=== PATIENT | female | born 1965 | race Caucasian/White ===

== ENCOUNTER 2016-06-29 12:36 | Day surgery (SDC) | payer OTHER ==
[~2016-06-29] VITALS: Ht 157.5 cm; Wt 89.3 kg
[2016-06-29] VITALS (7 sets, daily range): BP systolic 111–148; BP diastolic 56–88; PULSE 65–79; TEMP 98–98.3
[~2016-06-29 12:36] MED LIST: LEVSIN 0.10.125 MG/T PO; NORCO 325 MG-51 TAB PO; ZOFRAN 4MG T4 MG/TAB PO
[2016-06-29] MEDS ORDERED: PEPCID40 MG PO (13:07)
[2016-06-29] MEDS ORDERED: NORCO 325 MG-51 TAB PO (18:47)
[2016-06-29] MEDS ORDERED: ZOFRAN ODT4 MG PO (18:47)
== END 2016-06-29 22:06 | disposition home or self-care (01) ==
LOC: SDCO 12:36 → JCC 19:15 → SDCO 22:06
DX: K81.1 Chronic cholecystitis (principal)
CPT/HCPCS: OP; J0330; J0690; J1100; J1885; J2270; J2405; J2704; J3010; J7120; Q9967

== ENCOUNTER → 2017-01-07 | Outpatient (REF) ==
[~2017-01-07] MED LIST changes: +PEPCID40 MG PO; +ZOFRAN ODT4 MG PO
== END ==
LOC: WSOH 08:30
DX: Z23 Encounter for immunization (principal)

== ENCOUNTER → 2017-01-29 | Outpatient (REF) | LOC: WSOH 16:00 | DX: Z02.89 Encounter for other administrative examinations (principal) ==

== ENCOUNTER → 2017-09-24 | Outpatient (CLI) | payer OTHER ==
[2017-09-24 07:37] LABS: BASO # 0.1 (0.0-0.2); BASO % 1.2 % (0.0-2.0); EOS # 0.1 (0.0-0.7); GRAN # 2.3 (1.4-6.5); HEMATOCRIT 41.3 % (37.0-47.0); LYMPH # 1.5 (1.2-3.4); LYMPH % 34.2 % (20.0-51.0); MEAN CELL VOLUME 92 fl (80.0-100.0); MEAN CORPUSCULAR HEMOGLOBIN 31 pg (27.0-31.0); MEAN CORPUSCULAR HGB CONC 34 g/dl (33.0-37.0); MEAN PLATELET VOLUME 9.7 fl (7.4-10.4); MONO # 0.4 (0.1-0.6); MONO % 8.4 % (1.7-9.3); PLATELET COUNT 304 K/mm3 (130-400)
[2017-09-24 07:48] LABS: ALBUMIN 3.4 gm/dL (3.5-5.0); BILIRUBIN,TOTAL 0.5 mg/dL (0.0-1.0); CALCIUM 9.1 mg/dL (8.4-10.2); CHOLESTEROL RISK RATIO 2.7; CREATININE, serum 0.83 mg/dL (0.52-1.25); TOTAL PROTEIN 6.3 gm/dL (6.4-8.2)
[2017-09-24 08:18] LABS: THYROID STIMULATING HORMONE 2.79 uIU/mL (0.465-4.680)
== END ==
LOC: COL.LAB 07:14
PROVIDERS: Family Medicine
DX: Z13.220 Encounter for screening for lipoid disorders (principal); Z13.29 Encounter for screening for other suspected endocrine disorder; Z13.0 Encounter for screening for diseases of the blood and blood-forming organs and certain disorders involving the immune mechanism; E66.9 Obesity, unspecified

== ENCOUNTER → 2018-09-03 | Outpatient (CLI) | payer OTHER ==
[2018-09-03 07:39] LABS: CHOLESTEROL RISK RATIO 2.3
== END ==
LOC: COL.LAB 07:07
PROVIDERS: Family Medicine
DX: Z00.00 Encounter for general adult medical examination without abnormal findings (principal); Z13.1 Encounter for screening for diabetes mellitus; I10 Essential (primary) hypertension

== ENCOUNTER → 2018-09-26 | Outpatient (CLI) | payer OTHER | LOC: COL.RAD 10:19 | DX: N20.0 Calculus of kidney (principal); K43.9 Ventral hernia without obstruction or gangrene; Z90.49 Acquired absence of other specified parts of digestive tract | CPT/HCPCS: Q9967 ==

== ENCOUNTER → 2018-10-09 | Outpatient (CLI) | payer OTHER | LOC: MC.RAD 09-04 16:15 | DX: Z12.31 Encounter for screening mammogram for malignant neoplasm of breast (principal) ==

== ENCOUNTER → 2018-12-02 | Outpatient (CLI) | payer OTHER | LOC: COL.RAD 15:23 | DX: M79.89 Other specified soft tissue disorders (principal) ==

== ENCOUNTER → 2019-10-07 | Outpatient (CLI) | payer OTHER ==
[2019-10-07 13:36] LABS: BASO % 0.8 % (0.0-2.0); EOS # 0.1 (0.0-0.7); EOS % 1.6 % (0-4.0); GRAN % 58.3 % (42.2-75.2); HEMOGLOBIN 15.2 g/dl (12.5-16.0); LYMPH # 1.5 (1.2-3.4); LYMPH % 30.1 % (20.0-51.0); MEAN CELL VOLUME 98 fl (80.0-100.0); MEAN CORPUSCULAR HEMOGLOBIN 32 pg (27.0-31.0); MEAN CORPUSCULAR HGB CONC 33 g/dl (33.0-37.0); MEAN PLATELET VOLUME 10.2 fl (7.4-10.4); MONO # 0.5 (0.1-0.6); PLATELET COUNT 332 K/mm3 (130-400); RED BLOOD COUNT 4.69 M/mm3 (4.10-5.30); REDCELL DISTRIBUTION WIDTH-CV 13.5 % (11.5-14.5)
[2019-10-07 13:58] LABS: ALBUMIN 3.6 gm/dL (3.5-5.0); BILIRUBIN,TOTAL 0.6 mg/dL (0.0-1.0); CALCIUM 9.7 mg/dL (8.4-10.2); CHOLESTEROL RISK RATIO 2.3; CREATININE, serum 0.83 (0.52-1.25); POTASSIUM 5.2 mmol/L (3.4-5.0); TOTAL PROTEIN 6.1 gm/dL (6.4-8.2)
[2019-10-07 14:28] LABS: TSH w REFLEX 2.47 uIU/mL (0.465-4.680)
== END ==
LOC: COL.LAB 08:17
PROVIDERS: Family Medicine
DX: Z00.00 Encounter for general adult medical examination without abnormal findings (principal)

== ENCOUNTER → 2019-10-21 | Outpatient (CLI) | payer OTHER | LOC: MC.RAD 16:50 | DX: Z12.31 Encounter for screening mammogram for malignant neoplasm of breast (principal) ==